=== PATIENT | male | born 1975 | race American Indian/Alaskan Native ===

== ENCOUNTER 2020-06-24 06:26 | Inpatient (IN) | payer OTHER ==
[2020-06-22 13:45] LABS: Hematocrit 41.3 % (35.5-45.6); Hemoglobin 13.8 gm/dl (11.8-15.2); Mean Corpuscular HGB Conc 33 % (32-34); Mean Corpuscular Volume 93 fl (84-94); Platelet Count 246 K/mm3 (140-440); Red Blood Count 4.43 M/mm3 (3.65-5.03); Red Cell Distribution Width 14.8 % (13.2-15.2)
[2020-06-22 14:07] LABS: Albumin 4.7 g/dL (3.9-5); Calcium 10.2 mg/dL (8.4-10.2)
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
[~2020-06-24 06:26] MED LIST: ACETAMINOPHEN 500 MG TAB PO NR; CARISOPRODOL 350 MG TAB PO NR; GABAPENTIN 300 MG CAP PO NR; MAGNESIUM OXIDE 400 MG TAB PO NR; SODIUM CHLORIDE 0.9% 1000 ML 1,000 ML IV SCH; ceFAZolin/Water 2 GM/20 ML 2 GM/20 ML SYRINGE IV NR
[2020-06-24] MEDS ORDERED: BACTERIOSTATIC SODIUM CHLORIDE 0.9% 30 ML VIAL INFILTRATI ONE (06:28)
[2020-06-24] MEDS ORDERED: SODIUM CHLORIDE P/F VIAL 10 ML 10 ML ONE (06:29)
[2020-06-24] MEDS ORDERED: GELATIN SPONGE SIZE 100 TP ONE (06:30)
[2020-06-24] MEDS ORDERED: THROMBIN (RECOMBINANT) 5,000 UNIT VIAL TP ONE (06:30)
[2020-06-24] MEDS ORDERED: BACITRACIN 50,000 UNIT VIAL ONE (06:30)
[2020-06-24] MEDS ORDERED: LIDOCAINE 0.5%/EPINEPHRINE 1:200,000 VIAL (50 ML) MDV INFILTRATI ONE (06:30)
[2020-06-24] MEDS ORDERED: fentaNYL 100 MCG/2 ML INJ ONE (06:50)
[2020-06-24] MEDS ORDERED: ONDANSETRON 4 MG/2 ML INJ ONE (06:50)
[2020-06-24] MEDS ORDERED: ROCURONIUM 50 MG/5 ML INJ IV ONE ×3 (06:50→12:29)
[2020-06-24] MEDS ORDERED: SUCCINYLCHOLINE CHLORIDE 200 MG/10 ML INJ MDV ONE (06:50)
[2020-06-24] MEDS ORDERED: dexAMETHasone 20 MG/5 ML VIAL ONE (06:50)
[2020-06-24] MEDS ORDERED: propofoL 200 MG/20 ML VIAL IV ONE (06:50)
[2020-06-24] MEDS ORDERED: LIDOCAINE MPF (2%) 20 MG/1 ML VIAL 5 ML ONE (06:50)
[2020-06-24] MEDS ORDERED: LIDOCAINE 1%/EPINEPHRINE 1:100,000 VIAL (20 ML) INFILTRATI ONE ×2 (06:57→08:48)
--- NOTE | 2020-06-24 07:42 | Anesthesia Day of Surgery ---
Anesthesia Day of Surgery - Day of Surgery Patient Examined: Yes ([id number]) Patient H&P Reviewed: Yes Patient is NPO: Yes
[2020-06-24] MEDS ORDERED: ePHEDrine SULFATE 50 MG/1 ML INJ ONE (08:11)
[2020-06-24] MEDS ORDERED: KETAMINE/STERILE WATER 50 MG/ML SYRINGE ONE (08:28)
[2020-06-24] MEDS ORDERED: HYDROmorphone 1 MG/1 ML INJ ONE (08:28)
[2020-06-24] MEDS ORDERED: PROPOFOL 1,000 MG/100 ML BOTTLE IV ONE (09:00)
[2020-06-24] MEDS ORDERED: SODIUM CHLORIDE 0.9% IRR 1,500 ML BOTTLE IR ONE (09:18)
[2020-06-24] MEDS ORDERED: BACITRACIN 50,000 UNIT VIAL IR ONE (09:18)
--- NOTE | 2020-06-24 12:26 | Post Operative Note ---
Pre-op diagnosis: Cervical spondylosis w/ myelopathy Post-op diagnosis: same Findings: Severe stenosis at C3-4 and C4-5 Procedure: C3-4 C4-5 ACDF Anesthesia: GETA Surgeon: ROSIE WYATT II Route Salesperson: ADAM ERICKSON Estimated blood loss: minimal Pathology: none Condition: stable Disposition: PACU
[2020-06-24] MEDS ORDERED: SUGAMMADEX SODIUM 200 MG/2 ML VIAL IV ONE (12:27)
[2020-06-24] MEDS ORDERED: PHENYLEPHRINE 10 MG/1 ML INJ SDV ONE (12:30)
[2020-06-24] MEDS ORDERED: SODIUM CHLORIDE 0.9% 100 ML ONE (12:30)
[2020-06-24] MEDS ORDERED: SODIUM CHLORIDE 0.9% 1000 ML 1,000 ML ONE (12:30)
[2020-06-24] MEDS ORDERED: PHENYLEPHRINE/NS 1,000 MCG/10 ML SYRINGE (OR USE) IV ONE (12:30)
[2020-06-24] MEDS ORDERED: traMADol 50 MG TAB PO PRN (14:25)
[2020-06-24] MEDS ORDERED: ceFAZolin/NS 1 GM/50 ML 1 GM/50 ML BAG IV SCH (14:25)
[2020-06-24] MEDS ORDERED: ONDANSETRON 4 MG/2 ML INJ IV PRN (14:25)
[2020-06-24] MEDS ORDERED: MORPHINE 4 MG/1 ML INJ IV PRN (14:25)
--- NOTE | 2020-06-24 15:58 | Post Anesthesia Evaluation ---
- Post Anesthesia Evaluation Patient Participated: Yes Airway Patent: Yes Stable Respiratory Function: Yes Nausea/Vomiting: No Temp > 96.8F: Yes Pain Manageable: Yes Adequeate Hydration: Yes Anesthesia Complications: No Block Receding Appropriately: Not Applicable Patient on Ventilator: No
--- NOTE | 2020-06-24 16:31 | XRay Report ---
2 fluoroscopic images submitted Indication: Intraoperative localization Impression: 2 images of the cervical spine were submitted for documentation purposes with radiology involvement. ACDF at C3-5 with normal alignment and no hardware complication. Please refer to the o perative note for complete details. Fluoroscopic time: 56 seconds Signer Name: Randy Boyle MD Signed: 06/24/2020 4:26 PM Workstation Name: [id number]
[2020-06-24] MEDS: SODIUM CHLORIDE 0.9% 1000 ML 1,000 ML IV SCH (17:03)
[2020-06-24] MEDS ORDERED: oxyCODONE 5 MG TAB PO PRN (17:41)
--- NOTE | 2020-06-24 18:10 | Progress Note ---
Assessment and Plan 44 y/o M POD1 s/p C3-4, C4-5 ACDF -resume home meds -drain to suction -pain medication prn -OOB as tolerated -clear liquid diet tonight, liberalize to regular in AM -bmp/cbc this evening -anticipate discharge tomorrow morning Subjective Date of service: 06/24/20 Principal diagnosis: post op Interval history: NAEON; pt resting comfortably. He denies significant pain Objective - Exam Narrative Exam: seen and examined no acute distress NC/AT RRR breathing non-labored abdomen soft no cyanosis or clubbing A&Ox3 CNII-XII intact MAEW, no focal deficits sensation intact to light touch L ant cervical incision c/d/i, flat Drain patent - Vital Sign Vital Signs - 12hr 06/24/20 06/24/20 06/24/20 06:25 13:00 13:05 Temperature 98.3 F 97.8 F Pulse Rate 82 86 87 Respiratory 16 15 15 Rate Blood Pressure 162/98 127/64 135/70 O2 Sat by Pulse 100 99 100 Oximetry 06/24/20 06/24/20 06/24/20 13:10 13:15 13:30 Temperature Pulse Rate 87 86 83 Respiratory 13 16 18 Rate Blood Pressure 150/79 148/79 139/74 O2 Sat by Pulse 100 100 97 Oximetry 06/24/20 06/24/20 06/24/20 13:45 14:00 15:00 Temperature 98.4 F 98.2 F Pulse Rate 78 81 80 Respiratory 18 19 13 Rate Blood Pressure 136/78 136/76 144/76 O2 Sat by Pulse 97 99 99 Oximetry 06/24/20 15:35 Temperature 98.0 F Pulse Rate 85 Respiratory 15 Rate Blood Pressure 135/75 O2 Sat by Pulse 98 Oximetry - Laboratory Findings CBC and BMP: 06/22/20 00:01 06/22/20 00:01 Abnormal Lab Findings: Abnormal Labs 06/22/20 06/24/20 00:01 07:28 Potassium 5.3 H Carbon Dioxide 20 L BUN 40 H Creatinine 3.7 H POC Glucose 109 H Total Protein 8.5 H
[2020-06-24 20:43] LABS: Calcium 8.9 mg/dL (8.4-10.2)
[2020-06-24 20:57] LABS: Hematocrit 40.5 % (35.5-45.6); Hemoglobin 12.9 gm/dl (11.8-15.2); Mean Corpuscular HGB Conc 32 % (32-34); Mean Corpuscular Volume 94 fl (84-94); Platelet Count 226 K/mm3 (140-440); Red Cell Distribution Width 14.6 % (13.2-15.2)
[2020-06-24 22:00] LABS: Basophils % (Manual) 0 % (0.0-1.8); Eosinophils % (Manual) 0 % (0.0-4.3); RBC Morphology Normal; Total Cells Counted 100
[2020-06-24] MEDS ORDERED: SPIRONOLACTONE 50 MG TAB PO SCH (22:00)
[2020-06-24] MEDS: DOCUSATE SODIUM 100 MG CAP PO SCH (22:20)
[2020-06-24] MEDS: SENNOSIDES 8.6 MG TAB PO SCH (22:20)
[2020-06-24] MEDS: carvediloL 25 MG TAB PO SCH (22:20)
[2020-06-24] MEDS: FUROSEMIDE 40 MG TAB PO SCH (22:21)
[2020-06-24] MEDS: ceFAZolin/NS 1 GM/50 ML 1 GM/50 ML BAG IV SCH (22:22)
[2020-06-25] MEDS: FUROSEMIDE 40 MG TAB PO SCH (05:38)
[2020-06-25] MEDS: ceFAZolin/NS 1 GM/50 ML 1 GM/50 ML BAG IV SCH (05:38)
[2020-06-25] MEDS: SODIUM CHLORIDE 0.9% 1000 ML 1,000 ML IV SCH (05:43)
[2020-06-25] MEDS ORDERED: amLODIPine 5 MG TAB PO SCH (10:00)
[2020-06-25] MEDS: SENNOSIDES 8.6 MG TAB PO SCH (10:35)
[2020-06-25] MEDS: carvediloL 25 MG TAB PO SCH (10:35)
[2020-06-25] MEDS: DOCUSATE SODIUM 100 MG CAP PO SCH (10:35)
[2020-06-25 12:01] VITALS: BP 152/85
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
== END 2020-06-25 16:31 | disposition home or self-care (01) | DRG 473 ==
LOC: OR 06:26 → 3A 12:27 → 3B-SURG 15:30
PROVIDERS: ADMIT Psychiatry & Neurology Neurology; ATTEND Psychiatry & Neurology Neurology
PROC: 0RT30ZZ Resection of Cervical Vertebral Disc, Open Approach (ICD-10-PCS; principal; 2020-06-24)
PROC: 0RG20A0 Fusion of 2 or more Cervical Vertebral Joints with Interbody Fusion Device, Anterior Approach, Anterior Column, Open Approach (ICD-10-PCS; 2020-06-24)
DX: M47.12 Other spondylosis with myelopathy, cervical region (principal); M48.02 Spinal stenosis, cervical region; I11.0 Hypertensive heart disease with heart failure; I50.9 Heart failure, unspecified; M10.9 Gout, unspecified; F41.9 Anxiety disorder, unspecified; D64.9 Anemia, unspecified; E11.9 Type 2 diabetes mellitus without complications; M32.9 Systemic lupus erythematosus, unspecified; Z20.828 Contact with and (suspected) exposure to other viral communicable diseases; Z88.8 Allergy status to other drugs, medicaments and biological substances
CPT/HCPCS: 36415; 72040; 80048; 80053; 82962; 85007; 85025; 85027; 88304; 88311; G0378; A4649; C1713; J0330; J0690; J1100; J1170; J2370; J2405; J2704; J3010; J3490; J7030; U0003